=== PATIENT | female | born 1965 | race Caucasian/White ===

== ENCOUNTER → 2017-08-09 | Outpatient (CLI) | payer OTHER ==
[~2017-08-09] MED LIST: BENT10CA PO; OMEP20CA3 PO; VALA1TAB2 PO
--- NOTE | 2017-08-09 10:19 | REP ---
BILATERAL MAMMOGRAM: FAMILY HISTORY: Breast cancer in paternal grandmother. Bilateral MLO and CC views demonstrate tiny calcifications in the medial left retroareolar region for which magnification views are recommended. There also appear to be tiny calcifications in the region of the axilla on the left MLO view. Recommend magnification views in the MLO, ML and axillary CC projections of this region. Otherwise there is moderate heterogeneous fibroglandular density bilaterally which appears stable. No new mass is seen. There are stable nodular opacities in the right breast both medially and laterally with benign calcifications most consistent with benign fibroadenomas. IMPRESSION: ACR 0 incomplete. Two areas of tiny calcifications in the left breast for which magnification views are recommended, one on the medial retroareolar region and the other near the left axilla. ACR 0 incomplete. BI-RADS/ACR category 0 mammogram. Incomplete: Additional imaging and/or prior images are needed before a final assessment can be assigned. This mammogram was interpreted with the aid of an FDA-approved computer-aided detection system. A. Negative x-ray reports should not delay biopsy if a dominant or clinically suspicious mass is present. B. Four to eight percent of cancers are not identified by x-ray. C. Adenosis and dense breasts may obscure an underlying neoplasm. The patient states she had a clinical breast exam 07/2017. The patient letter being requested is M0.
== END ==
LOC: M WHC 08:44
PROVIDERS: ATTEND Nurse Practitioner Women's Health
DX: R92.0 Mammographic microcalcification found on diagnostic imaging of breast (principal)

== ENCOUNTER → 2017-08-14 | Outpatient (CLI) | payer OTHER ==
--- NOTE | 2017-08-14 12:45 | REP ---
DIAGNOSTIC MAMMOGRAM, LEFT BREAST: Diagnostic mammogram left breast performed with multiple magnification views obtained. Multiple clustered pleomorphic microcalcifications are seen in the left retroareolar region, somewhat medially. These appear suspicious and stereotactic biopsy is recommended. There are three or four tiny calcifications in the left axillary tail region which do not appear to be suspicious. IMPRESSION: ACR 4 suspicious. Multiple clustered pleomorphic microcalcifications in theft retroareolar region somewhat medially. These appear suspicious. Recommend stereotactic biopsy. BI-RADS/ACR category 4 mammogram. Suspicious abnormality - biopsy should be considered. Usually requires biopsy. Patient letter [id number]. Signed by Dewayne White MD 08/14/2017 05:05 P
== END ==
LOC: M RAD 11:05
PROVIDERS: ATTEND Nurse Practitioner Women's Health
DX: R92.0 Mammographic microcalcification found on diagnostic imaging of breast (principal); R92.2 Inconclusive mammogram

== ENCOUNTER 2019-08-21 06:53 | Day surgery (SDC) | payer OTHER ==
[~2019-08-21] VITALS: Ht 162.6 cm; Wt 61.2 kg
[~2019-08-21 06:53] MED LIST changes: +MULTCAP PO; -OMEP20CA3 PO; +OMEP20CA4 PO; +ROSU5TAB5 PO
[2019-08-21] MEDS ORDERED: NS 1,000 ML IV ONE (07:00)
[2019-08-21] MEDS ORDERED: PROPOFOL 200 MG/20 ML VIAL As Ordered ONE (07:02)
[2019-08-21] MEDS ORDERED: LIDOCAINE 2% INJ 100 MG/5 ML SDV (FOR ANES.) As Ordered ONE (07:02)
--- NOTE | 2019-08-21 08:31 | ROOR ---
Patient Name: Lise Aguiar Procedure Date: 08/21/2019 8:11 AM Date of : 1965 Age: 54 Room: [facility] Gender: Female Note Status: Finalized Procedure: Colonoscopy Indications: High risk colon cancer surveillance: Personal history of colonic polyps Providers: Reid REYES MD Referring MD: NISHANT WALTERS MD Requesting Provider: Medicines: Monitored Anesthesia Care Complications: No immediate complications. Procedure: Pre-Anesthesia Assessment: - The heart rate, respiratory rate, oxygen saturations, blood pressure, adequacy of pulmonary ventilation, and response to care were monitored throughout the procedure. The Colonoscope was introduced through the anus and advanced to the cecum, identified by appendiceal orifice and ileocecal valve. The colonoscopy was performed without difficulty. The patient tolerated the procedure well. The quality of the bowel preparation was good. Findings: The perianal and digital rectal examinations were normal. Small Internal Hemorrhoids. The entire examined colon appeared normal on direct and retroflexion views. A tattoo was seen in the ascending colon. A post-polypectomy scar was found at the tattoo site. There was no evidence of residual polyp tissue. Impression: - Small Internal Hemorrhoids. - A tattoo was seen in the ascending colon. A post-polypectomy scar was found. There was no evidence of residual polyp tissue. - The entire colon is normal on direct and retroflexion views. - No specimens collected. Recommendation: - Repeat colonoscopy in 5 years for surveillance. Reid Reyes MD Reid REYES MD 08/21/2019 8:31:32 AM Electronically signed by Reid REEYS MD Number of Addenda: 0 Note Initiated On: 08/21/2019 8:11 AM Estimated Blood Loss: Estimated blood loss: none.
[2019-08-21 08:50] VITALS: BP 123/82
== END 2019-08-21 08:55 | disposition home or self-care (01) ==
LOC: M OPP 06:53
PROVIDERS: ATTEND Internal Medicine Gastroenterology
DX: Z12.11 Encounter for screening for malignant neoplasm of colon (principal); Z86.010 Personal history of colon polyps; Z79.899 Other long term (current) drug therapy; Z88.5 Allergy status to narcotic agent; Z80.0 Family history of malignant neoplasm of digestive organs

== ENCOUNTER → 2019-12-03 | Outpatient (CLI) | payer OTHER ==
[~2019-12-03] MED LIST changes: +OMEP1CAP73 PO; -OMEP20CA4 PO; -VALA1TAB2 PO; +VALA1TAB64 PO
== END ==
LOC: M PLALAB 09:17
PROVIDERS: ATTEND Nurse Practitioner Women's Health
DX: Z13.79 Encounter for other screening for genetic and chromosomal anomalies (principal)

== ENCOUNTER → 2020-12-26 | Outpatient (REF) | payer OTHER ==
[~2020-12-26] MED LIST changes: +VALA1TAB5 PO; -VALA1TAB64 PO
== END ==
LOC: M WUC 09:40
PROVIDERS: ATTEND Physician Assistant
DX: N39.0 Urinary tract infection, site not specified (principal)

== ENCOUNTER → 2021-02-01 | Outpatient (CLI) | payer OTHER ==
--- NOTE | 2021-02-01 10:03 | REP ---
INDICATION: HEMATURIA AND COUGH COMPARISON: None. TECHNIQUE: PA and lateral. FINDINGS: The mediastinum and cardiac silhouette are normal. The lung taylor are clear and without acute consolidation, effusion, or pneumothorax. The skeletal structures are intact and normal. IMPRESSION: No acute cardiopulmonary process. If the patient remains symptomatic consider chest CT for further investigation. <Electronically signed by Wilson Nails > 02/01/21 1000
--- NOTE | 2021-02-01 10:05 | REP ---
INDICATION: HEMATURIA AND COUGH. COMPARISON: None. TECHNIQUE: Supine and upright views of the abdomen and pelvis. FINDINGS: Small bilateral nephroliths (left greater than right) are suspected measuring up to approximately 4 mm. The bowel gas pattern is nonspecific. No organomegaly. No foreign body. Skeletal structures demonstrate age-related degenerative changes. IMPRESSION: Few suspected intrarenal calculi measuring up to 4 mm (left greater than right). <Electronically signed by Wilson Nails > 02/01/21 1000
== END ==
LOC: M WUC 09:26
PROVIDERS: ATTEND Internal Medicine
DX: N20.0 Calculus of kidney (principal); R31.9 Hematuria, unspecified; R05 Cough

== ENCOUNTER → 2021-08-10 | Outpatient (CLI) | payer OTHER ==
--- NOTE | 2021-08-10 10:42 | REP ---
INDICATION: SEVERE FLANK PAIN, DYSURIA, EVAL FOR KIDNEY STONE COMPARISON: Comparison abdominal radiographs February 01, 2021. TECHNIQUE: Helical scanning is acquired and 3 mm axial images were reformatted. Coronal and sagittal MPR images were generated and reviewed. FINDINGS: Preliminary digital camp cook radiograph demonstrates a normal bowel gas pattern. The lung bases are clear. There is mild linear fibrosis in the right lower lobe. There is a oval-shaped 2.7 cm cyst in the right lobe of the liver. There is a 2 cm area of low-density in the anterior aspect of the left lobe of the liver which may be cyst or hemangioma. No other focal liver lesion is seen. The spleen is normal in size homogeneous in texture. No adrenal abnormality is observed. Some vascular calcification is seen in the splenic artery. No pancreatic abnormality is seen. The gallbladder is unremarkable. The kidneys appear morphologically intact. No hydronephrosis or intrarenal calculus is seen. No retroperitoneal mass or adenopathy is observed. There is however a urinary calculus in the bladder lumen to the left of midline. This calculus measures 5.5 mm in diameter. A normal appendix is seen in the right lower quadrant. Small and large bowel loops show no acute abnormality. There is sigmoid colon diverticulosis without CT evidence of diverticulitis. Bone window settings show no bony destructive lesion. No abdominal wall defect is seen. IMPRESSION: 1. 5.5 mm bladder calculus consistent with recent passage of left ureteral stone given the history of severe left flank pain. 2. Left colonic diverticulosis. 3. Right lobe liver cyst unchanged from January 25, 2016 sonogram. Low-density area in the left lobe may be hemangioma. Consider repeat right upper quadrant sonogram.. <Electronically signed by Jarad Parks > 08/10/21 [id number]
== END ==
LOC: M PLAIMG 09:36
PROVIDERS: ATTEND Internal Medicine
DX: N20.0 Calculus of kidney (principal)

== ENCOUNTER → 2024-12-10 | Outpatient (CLI) | payer OTHER ==
[~2024-12-10] MED LIST changes: +ROSU5TAB49 PO; -ROSU5TAB5 PO
== END ==
LOC: M SOG 07:52
PROVIDERS: ATTEND Physician Assistant
DX: Z53.20 Procedure and treatment not carried out because of patient's decision for unspecified reasons (principal)

== ENCOUNTER 2024-12-16 10:38 | Outpatient (RCR) | payer OTHER ==
[~2024-12-16 10:38] MED LIST changes: +ACET-861 PO; +ECOT81TA5 PO; +IBUP-1114 PO; +MILKSUS3 PO; +MIRA3350 PO; +OMEP-173 PO; +OXYC-1 PO; +OXYC-517 PO; +ROSU10TA61 PO; +SENO8.6T10 PO; +THERTAB52 PO; +TRAN1DIS4 TOP
== END 2024-12-18 ==
LOC: M PT 10:38
PROVIDERS: ATTEND Orthopaedic Surgery
DX: S82.851A Displaced trimalleolar fracture of right lower leg, initial encounter for closed fracture (principal)

== ENCOUNTER → 2025-01-01 | Outpatient (CLI) | payer OTHER | LOC: M WHC 10:03 | PROVIDERS: ATTEND Internal Medicine | DX: M85.89 Other specified disorders of bone density and structure, multiple sites (principal) ==

== ENCOUNTER → 2025-01-07 | Outpatient (CLI) | payer OTHER | LOC: M SOG 07:50 | PROVIDERS: ATTEND Physician Assistant | DX: S82.851A Displaced trimalleolar fracture of right lower leg, initial encounter for closed fracture (principal); W18.30XA Fall on same level, unspecified, initial encounter; Y92.009 Unspecified place in unspecified non-institutional (private) residence as the place of occurrence of the external cause ==

== ENCOUNTER → 2025-01-15 | Outpatient (RCR) | payer OTHER | LOC: M PT 12-25 09:17 | PROVIDERS: ATTEND Orthopaedic Surgery | DX: S82.851A Displaced trimalleolar fracture of right lower leg, initial encounter for closed fracture (principal); X58.XXXA Exposure to other specified factors, initial encounter; Y92.9 Unspecified place or not applicable ==

== ENCOUNTER → 2025-02-04 | Outpatient (CLI) | payer OTHER | LOC: M SOG 07:50 | PROVIDERS: ATTEND Physician Assistant | DX: S82.851A Displaced trimalleolar fracture of right lower leg, initial encounter for closed fracture (principal); W18.30XA Fall on same level, unspecified, initial encounter; Y92.009 Unspecified place in unspecified non-institutional (private) residence as the place of occurrence of the external cause ==

== ENCOUNTER 2025-02-10 07:26 | Outpatient (RCR) | payer OTHER | END 2025-02-15 | LOC: M PT 07:26 | PROVIDERS: ATTEND Orthopaedic Surgery | DX: S82.851D Displaced trimalleolar fracture of right lower leg, subsequent encounter for closed fracture with routine healing (principal) ==

== ENCOUNTER 2025-03-09 06:38 | Day surgery (SDC) | payer OTHER ==
[~2025-03-09] VITALS: Ht 162.6 cm; Wt 61.5 kg
[~2025-03-09 06:38] MED LIST changes: +CALC600T60 PO; +IBUP200C26 PO; +VITA100093 PO
[2025-03-09] MEDS ORDERED: LIDOCAINE 2% INJ 100 MG/5 ML SYRINGE As Ordered ONE (06:57)
[2025-03-09] MEDS ORDERED: propofoL 200 MG/20 ML VIAL As Ordered ONE (06:57)
[2025-03-09 07:51] VITALS: TEMP 97.6
[2025-03-09 08:05] VITALS: BP 128/74; O2SAT 96
== END 2025-03-09 08:09 | disposition home or self-care (01) ==
LOC: M OPP 06:38
PROVIDERS: ATTEND Internal Medicine Gastroenterology
DX: K63.5 Polyp of colon (principal); K57.30 Diverticulosis of large intestine without perforation or abscess without bleeding; K64.8 Other hemorrhoids; Z86.0100 Personal history of colon polyps, unspecified; Z80.0 Family history of malignant neoplasm of digestive organs; Z88.5 Allergy status to narcotic agent; Z79.899 Other long term (current) drug therapy

== ENCOUNTER 2025-03-16 07:23 | Outpatient (RCR) | payer OTHER | END 2025-03-17 | LOC: M PT 07:23 | PROVIDERS: ATTEND Orthopaedic Surgery | DX: S82.851A Displaced trimalleolar fracture of right lower leg, initial encounter for closed fracture (principal); X58.XXXA Exposure to other specified factors, initial encounter; Y92.9 Unspecified place or not applicable ==

== ENCOUNTER → 2025-04-08 | Outpatient (CLI) | payer OTHER | LOC: M SOG 06:51 | PROVIDERS: ATTEND Physician Assistant | DX: S82.851A Displaced trimalleolar fracture of right lower leg, initial encounter for closed fracture (principal) ==

== ENCOUNTER → 2025-07-28 | Outpatient (CLI) | payer OTHER | LOC: M SOG 06:57 | PROVIDERS: ATTEND Physician Assistant | DX: S82.851D Displaced trimalleolar fracture of right lower leg, subsequent encounter for closed fracture with routine healing (principal) ==

== ENCOUNTER → 2025-09-22 | Outpatient (CLI) | payer OTHER ==
[~2025-09-22] MED LIST changes: -ROSU10TA61 PO; +ROSU10TA90 PO
== END ==
LOC: M RAD 14:18
PROVIDERS: ATTEND Internal Medicine
DX: D38.1 Neoplasm of uncertain behavior of trachea, bronchus and lung (principal); E04.1 Nontoxic single thyroid nodule; I72.8 Aneurysm of other specified arteries; R91.8 Other nonspecific abnormal finding of lung field